=== PATIENT | male | born 1980 | race Caucasian/White ===

== ENCOUNTER 2025-10-26 12:35 | Inpatient (IN) ==
--- NOTE | 2025-10-26 13:28 | Emergency Department Note ---
Impression & Plan At risk for alcohol withdrawal, Transaminitis, Alcohol abuse, Alcoholic intoxication ED Provider Note NAME: LANEY GRACIA AGE: 45 SEX: M : 1980 ARRIVES VIA: Walk-In INFORMANT: Patient, ED PROVIDER(S): Sterling Rodrigues MD CHIEF COMPLAINT: Requesting alcohol withdrawal treatment MEDICAL DECISION MAKING: Patient presents with the above heavy drinker drinking 10-15 light beers daily. KERRY S protocol initiated but does not require acute treatment given that he finished his last drink about 20 minutes prior to arrival. IV was established and blood work was obtained. Patient's blood work shows a leukopenia likely consistent with chronic alcohol use. Patient with a normal hemoglobin and platelet count kidney function unremarkable. AST and ALT elevated. Alcohol of 225. KERRY S protocols were ordered with Valium as needed for KERRY S greater than 5. Patient currently without acute withdrawal related symptoms. The patient did receive thiamine folic acid and fluids. I did speak the on-call hospitalist service LEO Deleon with Dr. Zacarias. Discussion w/ other healthcare providers: None Prior /Outside records reviewed: None Differential diagnosis: Alcohol intoxication, toxicologic, infection, hypoglycemia, electrolyte abnormalities, cardiac sources, intracerebral event, neurologic, trauma, as well as other pathologies. Diagnostics, as interpreted by me: ECG: None Cardiac monitoring: An order was placed for continuous cardiac monitoring. The monitor shows a rate of 85 with sinus rhythm. Patient was placed on pulse oximetry Medical decision rules: None Imaging studies: None HPI: Patient presents requesting alcohol withdrawal related treatment and abstinence. The patient states that he was last sober in August. The patient states that he had an inpatient stay because he had a seizure at work after stopping drinking and likely began drinking about a week after his admission/discharge. Patient states that he is drinking 10-15 beers daily. He does not drink at work. Patient states that he last drank about 20 minutes prior to arrival and had about 4-5 beers prior to arrival. No inciting event or cause other than he states "it was time to stop this." He denies any SI HI or AVH. He states that his sleep is good and appetite has been good. He does work in the [employer] system. He denies abdominal pain or nausea or vomiting. PAST MEDICAL HISTORY: See Below PAST SURGICAL HISTORY: See Below SOCIAL HISTORY: See Below HOME MEDICATIONS: See Below ALLERGIES: See Below VITALS: See Below PHYSICAL EXAMINATION: GENERAL: NAD, non-toxic. EYE EXAM: Normal conjunctiva. PERRL, no anisocoria and EOM's grossly intact w/o pain. OROPHARYNX: Moist mucus membranes, grossly normal dentition. NECK: Trachea midline, no stridor. LUNGS: Clear to auscultation. Normal chest wall mechanics. HEART: NSR, no MRG. ABDOMEN: Abdomen soft, non-tender, no masses, no rebound or guarding. BACK: No CVA TTP. SKIN: No rashes and no bruising. UPPER EXTREMITIES: Upper extremities are grossly normal. LOWER EXTREMITIES: Grossly normal, no edema. NEURO EXAM: Awake and alert, follows commands, no obvious facial asymmetry, normal speech, moves all 4 extremities. 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 Beliefs That Will Affect Care: None Current Living Situation: Spouse and Family Feels Safe at Home: Yes Assistive Devices: None Allergies Allergies Allergy/AdvReac Type Severity Reaction Status Date / Time acetaminophen AdvReac Mild 0 Verified 11/15/14 03:48 hydrocodone AdvReac Mild 0 Verified 11/15/14 03:48 Home Meds Home Medications Medication Instructions Recorded Confirmed omeprazole 20 mg capsule,delayed 20 mg PO QAM 09/03/25 10/26/25 release buspirone 10 mg tablet 10 mg PO .DAILY IN AFTERNOON PRN 10/26/25 10/26/25 as directed buspirone 10 mg tablet 10 mg PO QAM 10/26/25 10/26/25 levetiracetam 500 mg tablet 500 mg PO QPM 10/26/25 10/26/25 sertraline 50 mg tablet 50 mg PO QAM 10/26/25 10/26/25 Results & Data (ED) Vital Signs Vital Signs - 24 hr 10/26/25 12:35 10/26/25 14:20 10/26/25 15:09 Temperature 36.6 C Temperature Source Temporal Artery Scan Pulse Rate 97 H 91 H 93 H Pulse Rate [Apical] Respiratory Rate 16 18 Respiratory Effort / Characteristics Respiratory Depth Respiratory Pattern Blood Pressure 140/97 Blood Pressure [Right Arm] Blood Pressure Mean 111 Blood Pressure Mean [Right Arm] Blood Pressure Position [Right Arm] Pulse Oximetry 95 95 Oxygen Delivery Method Room Air Sepsis Recent Fever Within 48 Hours No Sepsis New/Unexplained Change in Mental Status N/A Sepsis Action Taken by Nursing No Action Required 10/26/25 15:09 Temperature 36.8 C Temperature Source Oral Pulse Rate Pulse Rate [Apical] 84 Respiratory Rate 18 Respiratory Effort / Characteristics Non-Labored Spontaneous Respiratory Depth Normal Respiratory Pattern Regular Blood Pressure Blood Pressure [Right Arm] 136/103 H Blood Pressure Mean Blood Pressure Mean [Right Arm] 114 Blood Pressure Position [Right Arm] Sitting Pulse Oximetry 94 Oxygen Delivery Method Room Air Sepsis Recent Fever Within 48 Hours Sepsis New/Unexplained Change in Mental Status Sepsis Action Taken by Usp Medications Current Medication List: was personally reviewed by me Laboratory Data Attestation: I reviewed the patient's lab results. 10/26/25 13:26 10/26/25 13:26 Lab Results 10/26/25 10/26/25 Range/Units 13:26 14:11 WBC 3.41 L (4.8-10.8) K/ul RBC 5.29 (4.70-6.10) M/uL Hgb 14.3 (14.0-18.0) g/dL Hct 42.4 (42.0-52.0) % MCV 80.2 (80.0-100.0) fL MCH 27.0 (25.0-34.0) pg MCHC 33.7 (32.0-36.0) g/dL RDW Std Deviation 39.6 (36.4-46.3) fL RDW Coeff of Royer 13.7 (11.5-14.5) % Plt Count 165 (130-400) K/uL MPV 9.1 L (9.4-12.4) fL Immature Gran % (Auto) 0.0 % Neut % (Auto) 46.3 % Lymph % (Auto) 47.2 % [place] % (Auto) 5.9 % Eos % (Auto) 0.3 % Baso % (Auto) 0.3 % Neut # (Auto) 1.58 (1.40-6.50) K/uL Lymph # (Auto) 1.61 (1.20-3.40) K/uL [place] # (Auto) 0.20 (0.11-0.59) K/uL Eos # (Auto) 0.01 (0.00-0.50) K/uL Baso # (Auto) 0.01 (0.00-0.20) K/uL Immature Gran # (Auto) 0.00 L (0.01-0.20) K/uL Sodium 138 (136-145) mmol/L Potassium 4.5 (3.5-5.1) mmol/L Chloride 103 (98-107) mmol/L Carbon Dioxide 27 (21-32) mmol/L Anion Gap 8 (3-11) BUN 8 (6-23) mg/dl Creatinine 0.80 (0.6-1.4) mg/dl Est Cr Clr Drug Dosing 143.1 ml/min eGFR 112.61 BUN/Creatinine Ratio 10.0 (10-20) Glucose 101 H (70-99(Fasting)) mg/dl POC Glucose 100 H (70-99) mg/dl Calcium 9.4 (8.6-10.3) mg/dl Total Bilirubin 0.4 (0.2-1.0) mg/dl AST 87 H (13-39) U/L ALT 97 H (7-52) U/L Alkaline Phosphatase 63 (34-104) U/L Total Protein 8.0 (6.0-8.3) gm/dl Albumin 4.6 (3.4-5.0) gm/dl Globulin 3.4 (2.5-4.0) gm/dl Albumin/Globulin Ratio 1.4 (0.9-2) Ethyl Alcohol mg/dL 225.8 H (<10.0) mg/dl Administered Medications Discontinued Medications Thiamine HCl 500 mg/ Sodium (Chloride) 55 mls @ 210 mls/hr IV NOW ONE Stop: 10/26/25 13:41 Last Infusion: 10/26/25 14:58 Dose: Infused Documented By: Admin: 10/26/25 14:13 Dose: 210 mls/hr Documented By: JULIENNE Folic Acid 1 mg/ Syringe 10 mls @ 5 mls/min IV NOW ONE Stop: 10/26/25 13:27 Last Admin: 10/26/25 14:13 Dose: 5 mls/min Documented By: JULIENNE Sodium Chloride (Nss) 1,000 mls @ 999 mls/hr IV .Q1H1M ONE Stop: 10/26/25 15:06 Last Infusion: 10/26/25 15:51 Dose: Infused Documented By: Admin: 10/26/25 14:19 Dose: 999 mls/hr Documented By: JULIENNE Discharge Plan Visit Data Chief Complaint: Alcohol Withdrawal Stated Complaint: ALCOHOL WITHDRAWAL ED Provider: Sterling Rodrigues Discharge Problem: At risk for alcohol withdrawal, Transaminitis, Alcohol abuse, Alcoholic intoxication Patient Disposition: Admitted As Inpatient Condition: Good Discharge Instructions Interventions: ED Discharge Assessment Last Done: 10/26/25 16:46 Discharge Problem: Alcoholic intoxication Qualifiers: Complication of substance-induced condition: uncomplicated Qualified Code(s): F 10.920 - Alcohol use, unspecified with intoxication, uncomplicated
[2025-10-26] MEDS: THIAMINE HCL 500 MG in SODIUM CHLORIDE 0.9% 50 ML IV ONE (14:13)
[2025-10-26] MEDS: FOLIC ACID 1 MG in SYRINGE 9.8 ML IV ONE (14:13)
[2025-10-26] MEDS: SODIUM CHLORIDE 0.9% 1,000 ML IV ONE (14:19)
[2025-10-26 14:24] LABS: Hematocrit (blood only) 42.4 % (42.0-52.0); Hemoglobin 14.3 g/dL (14.0-18.0); Immature Granulocytes # (auto) 0.00 K/uL (0.01-0.20); Immature Granulocytes % (auto) 0.0 %; Mean Corpuscular Hemoglobin 27.0 pg (25.0-34.0); Mean Corpuscular Volume 80.2 fL (80.0-100.0); Platelet Count 165 K/uL (130-400); RDW Standard Deviation 39.6 fL (36.4-46.3); Red Blood Count 5.29 M/uL (4.70-6.10); White Blood Count 3.41 K/ul (4.8-10.8)
[2025-10-26 14:43] LABS: Alanine Aminotransferase 97.0 U/L (7-52); Albumin Globulin Ratio 1.4 (0.9-2); Albumin Level 4.6 gm/dl (3.4-5.0); Alkaline Phosphatase 63.0 U/L (34-104); Anion Gap 8.0 (3-11); Bilirubin,Total 0.4 mg/dl (0.2-1.0); Blood Urea Nitrogen 8.0 mg/dl (6-23); Calcium 9.4 mg/dl (8.6-10.3); Carbon Dioxide 27.0 mmol/L (21-32); Chloride 103.0 mmol/L (98-107); Creatinine Clr Calc Pharmacy 143.1 ml/min; Globulin 3.4 gm/dl (2.5-4.0); Glucose 101.0 mg/dl (70-99(Fasting)); Potassium 4.5 mmol/L (3.5-5.1); Sodium 138.0 mmol/L (136-145); Total Protein 8.0 gm/dl (6.0-8.3)
--- NOTE | 2025-10-26 15:06 | History & Physical Report ---
Date of Service October 26, 2025 Assessment & Plan (1) Alcohol abuse: (2) Transaminitis: (3) CHRISTEL (generalized anxiety disorder): Plan Patient is a 45 year old M with a past medical history of hypertension, CHRISTEL with hx panic attacks, alcohol abuse with history of seizures presenting with alcohol withdrawal. Last drink today ~ 30 minutes prior to ED visit. Reporting anxious feeling and jittery without a tremor. No headache, chest pain, palpitations, hallucinations, nausea, vomiting, bowel changes. No SI/HI. Typically consumes 15 beers daily x month and a half. Last sober in August 2025 following hospital admission to [facility] for seizure 2/2 ETOH withdrawal. Received full work up including EEG, MRI brain and lab work. Was seen by neurology, started on Keppra. Experienced similar symptoms today as he had when he had a seizure including intense anxiety/panic feeling. Recently started on Buspar and sertraline with only partial response. Works in [employer] at [employer], drinking triggered by work environment and anxiety. 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, hx seizure activity with withdrawal; no SI * CIWA score 4 * NSS 1 L bolus, Diazepam, Folic Acid, Thiamine given in ED * Will start AWSS protocol with phenobarb load + taper; thiamine and folic acid daily * B12 pending * NSS maintenance fluids * Permissive hypertension in the setting of withdrawal-> trend * Discussed Psych consult while inpatient for anxiety management as seems to be the trigger for ETOH abuse; patient denies need at this time with plan to continue OP anxiety mgmt (see below) * Discharge planning: anticipate d/c to home with PCP followup; desires alcohol cessation, will need OP resources #Transaminitis * AST 87, ALT 97 with normal bilirubin and Alk Phos-> improved from lab workup outpatient in 08/2024 * Trend #CHRISTEL * Anxiety trigger fo alcohol abuse * On sertraline and buspar daily-> continue home routine DVT Ppx: None Code status: Full PCP: Dr. Miguelito Forbes Dispo: Admit Patient seen in collaboration with Dr. Zacarias. Please see addendum.I spent a total of 60 minutes coordinating, documenting and providing care for this patient excluding time spent in the performance of separately billed services or time spent by another provider/QHP. History of Present Illness Primary Care Provider: Miguelito March Andrei Patient is a 45 year old M with a past medical history of hypertension, CHRISTEL with hx panic attacks, alcohol abuse with history of seizures presenting with alcohol withdrawal. Last drink today ~ 30 minutes prior to ED visit. Reporting anxious feeling and jittery without a tremor. No headache, chest pain, palpitations, hallucinations, nausea, vomiting, bowel changes. No SI/HI. Typically consumes 15 beers daily x month and a half. Last sober in August 2025 following hospital admission to [facility] for seizure 2/2 ETOH withdrawal. Received full work up including EEG, MRI brain and lab work. Was seen by neurology, started on Keppra. Experienced similar symptoms today as he had when he had a seizure including intense anxiety/panic feeling. Recently started on Buspar and sertraline with only partial response. Works in [employer] at [employer], drinking triggered by work environment and anxiety. Denies fever, chills, weight loss, weakness, headache, cognitive changes, vision/hearing changes, chest pain, SOB, swelling, difficulty breathing, urinary concerns, N/V/D, joint swelling/pain, ambulation difficulty, skin rashes, lesions, bleeding, bruising. Discussed with ED provider labs, ETOH withdrawal management. In the emergency department, patient was hemodynamically stable, then hypertensive to 136/103 without headache or vision changes. CIWA score 4. ETOH level 225. Given Diazepam, Folic acid, thiamine in ED. Lab workup showing leukopenia most likely in the setting alcohol withdrawal. AST 87, ALT 97 elevated, chronic elevation noted in outpatient record. History obtained primarily from the patient and via hospitalization record. No family at bedside. External chart review obtained from [employer]. Allergies Allergy/AdvReac Type Severity Reaction Status Date / Time acetaminophen AdvReac Mild 0 Verified 11/15/14 03:48 hydrocodone AdvReac Mild 0 Verified 11/15/14 03:48 Home Medications Medication Instructions Recorded Confirmed Type omeprazole 20 mg capsule,delayed 20 mg PO QAM 09/03/25 10/26/25 History release buspirone 10 mg tablet 10 mg PO .DAILY IN AFTERNOON PRN 10/26/25 10/26/25 History as directed buspirone 10 mg tablet 10 mg PO QAM 10/26/25 10/26/25 History levetiracetam 500 mg tablet 500 mg PO QPM 10/26/25 10/26/25 History sertraline 50 mg tablet 50 mg PO QAM 10/26/25 10/26/25 History Past Med/Surg History Problem List (Updated 10/26/25 @ 17:08 by Sterling Rodrigues MD) Alcoholic intoxication (Acute) At risk for alcohol withdrawal (Acute) CHRISTEL (generalized anxiety disorder) Alcohol abuse (Acute) Transaminitis (Acute) Seizure-like activity (Acute) ARF (acute renal failure) (Acute 11/15/14) Acute renal failure (Acute) Vomiting (Acute) Social History Smoking Status: Never smoker Hx Alcohol Use: Yes Alcohol type: beer Hx Substance Use: No Preferred Language: Azeri Communication Ability: Effective Dental Resident Required: No Beliefs That Will Affect Care: None Current Living Situation: Spouse and Family Feels Safe at Home: Yes Assistive Devices: None Review of Systems Review of Systems: All systems reviewed & are unremarkable except as noted in HPI & below Physical Exam Physical Exam: VITALS: Reviewed. WEIGHT/BMI reviewed. GEN: Healthy appearing, well-developed, NAD. PSYCH: Good Judgment. AOx3. Normal memory, mood, and affect. HEENT -Head: NC/AT; -Eyes: PERRL, EOMI. No discharge or redn ess; -Ears: External ears are normal. -Nose: Normal nares. -Mouth and throat: MMM. Normal gums, muc mitzi, palate,. Good dentition. NECK: Supple, with no masses. CV: S1, S2 without murmur or extra beats, no swelling, perfuses well LUNGS: CTAB, no w/r/c. ABD: Soft, NT/ND, NBS, no masses or organomegaly. : N/A SKIN: Warm, well perfused. No skin rashes or abnormal lesions. MSK: No deformities, Normal gait. EXT: No clubbing, cyanosis, or edema. NEURO: CN II-XII grossly intact. Speech clear. No focal deficits. Results & Data Results & Data Vital Signs (Past 12 Hours) Vital Signs Temp Pulse Resp BP Pulse Ox 10/26/25 14:20 91 H 10/26/25 12:35 36.6 C 97 H 16 140/97 95 Laboratory Results Short CBC 10/26/25 Range/Units 13:26 WBC 3.41 L (4.8-10.8) K/ul Hgb 14.3 (14.0-18.0) g/dL Hct 42.4 (42.0-52.0) % Plt Count 165 (130-400) K/uL BMP 10/26/25 13:26 Sodium 138 Potassium 4.5 Chloride 103 Carbon Dioxide 27 BUN 8 Creatinine 0.80 Glucose 101 H Calcium 9.4 Liver Function 10/26/25 Range/Units 13:26 Total Bilirubin 0.4 (0.2-1.0) mg/dl AST 87 H (13-39) U/L ALT 97 H (7-52) U/L Alkaline Phosphatase 63 (34-104) U/L Albumin 4.6 (3.4-5.0) gm/dl Supervising Physician Co-Signing Physician Notes Patient seen and examined at bedside. Last drink slightly before coming to ED. Has had withdrawal seizure before. On exam, mild tremors noted in hands bilaterally, otherwise well appearing. Creatinine at baseline, mildly elevated LFTs improved from prior, patient still actively intoxicated. Presentation consistent with active alcohol intoxication that is high risk for delirium tremens given prior event. Admit to PCU, start phenobarbital load and taper. AWSS score tracking. Start thiamine and folic acid, check B12. Trigger for alcohol use is likely anxiety drive, patient declining evaluation by psychiatry inpatient at this time. Patient open to discussing rehab options with case management. I have seen and discussed the case with the collaborating advanced practitioner. I agree with the above H&P. I have reviewed and confirmed the patients medical history, the findings on physical examination, and the patients diagnosis and treatment plan with Sheri BAILEY and agree with the information documented I spent a total of 20 minutes coordinating, documenting, and providing care for this patient excluding time spent in the performance of separately billed services. All of the aforementioned completed outside of collaborating with the assigned advanced practitioner for a full treatment plan. I have reviewed the advanced practitioner's documentation, and I agree with, and take responsibility for the plan of care
[2025-10-26] MEDS ORDERED: ONDANSETRON INJ 2 MG/ML 2 ML VIAL IV PRN (16:59)
[2025-10-26] MEDS ORDERED: ALUMINUM/MAGNESIUM SUSP 30 ML UDC PO PRN (16:59)
[2025-10-26] MEDS ORDERED: MAGNESIUM HYDROXIDE SUSP 30 ML UDC PO PRN (16:59)
[2025-10-26] MEDS ORDERED: SENNA 8.6 MG TAB PO PRN (17:18)
[2025-10-26] MEDS: SODIUM CHLORIDE 0.9% 1,000 ML IV SCH (17:35)
[2025-10-26] MEDS: MELATONIN 3 MG TAB PO PRN (20:11)
[2025-10-26] MEDS: ACETAMINOPHEN 325 MG TAB PO PRN (20:11)
[2025-10-27 06:12] LABS: Hematocrit (blood only) 38.4 % (42.0-52.0); Hemoglobin 13.2 g/dL (14.0-18.0); Immature Granulocytes # (auto) 0.01 K/uL (0.01-0.20); Immature Granulocytes % (auto) 0.3 %; Mean Corpuscular Hemoglobin 27.3 pg (25.0-34.0); Mean Corpuscular Volume 79.5 fL (80.0-100.0); Platelet Count 135 K/uL (130-400); RDW Standard Deviation 38.5 fL (36.4-46.3); Red Blood Count 4.83 M/uL (4.70-6.10); White Blood Count 3.10 K/ul (4.8-10.8)
[2025-10-27 06:31] LABS: Albumin Level 4.2 gm/dl (3.4-5.0); Anion Gap 9.0 (3-11); Blood Urea Nitrogen 11.0 mg/dl (6-23); Calcium 8.9 mg/dl (8.6-10.3); Carbon Dioxide 26.0 mmol/L (21-32); Chloride 101.0 mmol/L (98-107); Creatinine Clr Calc Pharmacy 142.8 ml/min; Glucose 91.0 mg/dl (70-99(Fasting)); Potassium 4.1 mmol/L (3.5-5.1); Sodium 136.0 mmol/L (136-145)
[2025-10-27] MEDS: THIAMINE HCL 100 MG TAB PO SCH (08:37)
[2025-10-27] MEDS: FOLIC ACID 400 MCG TAB PO SCH (08:38)
--- NOTE | 2025-10-27 13:49 | Hospitalist Progress Note ---
Date of Service October 27, 2025 Assessment & Plan (1) Alcohol abuse: (2) Transaminitis: (3) CHRISTEL (generalized anxiety disorder): Plan Patient is a 45 year old M with a past medical history of hypertension, CHRISTEL with hx panic attacks, alcohol abuse with history of seizures presenting with alcohol withdrawal. Last drink today ~ 30 minutes prior to ED visit. Reporting anxious feeling and jittery without a tremor. No headache, chest pain, palpitations, hallucinations, nausea, vomiting, bowel changes. No SI/HI. Typically consumes 15 beers daily x month and a half. Last sober in August 2025 following hospital admission to [facility] for seizure 2/2 ETOH withdrawal. Received full work up including EEG, MRI brain and lab work. Was seen by neurology, started on Keppra. Experienced similar symptoms today as he had when he had a seizure including intense anxiety/panic feeling. Recently started on Buspar and sertraline with only partial response. Works in [employer] at [employer], drinking triggered by work environment and anxiety. 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, hx seizure activity with withdrawal; no SI * CIWA score 4 * NSS 1 L bolus, Diazepam, Folic Acid, Thiamine given in ED * Will start AWSS protocol with phenobarb load + taper; thiamine and folic acid daily Remains stable without any significant withdrawal symptoms Minimal tremors with outstretched hands Has been eating and drinking reasonably and will DC intravenous fluid Blood pressure remains on the upper side at 154/101 and will observe The patient refused to go to inpatient rehab Likely discharge tomorrow cellulitis #Transaminitis * AST 87, ALT 97 with normal bilirubin and Alk Phos-> improved from lab workup outpatient in 08/2024 LFTs are improving Strongly advised to quit drinking #CHRISTEL * Anxiety trigger fo alcohol abuse * On sertraline and buspar daily-> continue home routine DVT Ppx: None Code status: Full PCP: Dr. Miguelito Forbes Dispo: Admit I spent a total of 53 minutes seeing the patient, examining him, reviewing the chart and going through the investigations, going through medication and planning of care Admission and Anticipated Discharge Date Admission Date: October 26, 2025 Subjective 10/27/2025 The patient was seen and examined in telemetry unit He was admitted with alcohol withdrawal syndrome Last drink was about 24 hours ago Still has minimal tremor but does not have any confusion and/or palpitation, no nausea or vomiting, Review of Systems Review of Systems: All systems reviewed and are unremarkable except as noted below Physical Exam Physical Exam: Lying in bed without any acute distress Constitutional: well developed, well nourished and + obese; not ill appearing Eyes: PERRL, conjunctivae normal, anicteric sclerae ENMT: external ear and nose normal, oropharynx normal Neck: trachea midline, no thyromegaly Respiratory: no respiratory distress Auscultation: lungs clear to auscultation bilaterally Cardiovascular: Rate/Rhythm: regular rate and regular rhythm; not tachycardic Heart Sounds: normal S1 and normal S2; no murmur Extremities: normal capillary refill; no edema Gastrointestinal (Abdomen): Inspection/Auscultation: normal bowel sounds; abdomen not distended Percussion/Palpation: abdomen soft; abdomen nontender Musculoskeletal: No acute arthritis involving any of the joint Neurologic: normal touch/pain/proprioception and moves all extremities; no focal motor deficits Psychiatric: A+Ox3, euthymic affect Lymphatic: no cervical or axillary lymphadenopathy Results & Data Results & Data Vital Signs (Past 12 Hours) Vital Signs Temp Pulse Resp BP Pulse Ox O2 Del Method 10/27/25 11:18 37.0 C 71 18 154/101 H 96 Room Air 10/27/25 07:57 36.8 C 76 20 158/99 H 96 Room Air Laboratory Results Short CBC 10/26/25 10/27/25 Range/Units 13:26 05:36 WBC 3.41 L 3.10 L (4.8-10.8) K/ul Hgb 14.3 13.2 L (14.0-18.0) g/dL Hct 42.4 38.4 L (42.0-52.0) % Plt Count 165 135 (130-400) K/uL BMP 10/26/25 10/27/25 13:26 05:36 Sodium 138 136 Potassium 4.5 4.1 Chloride 103 101 Carbon Dioxide 27 26 BUN 8 11 Creatinine 0.80 0.80 Glucose 101 H 91 Calcium 9.4 8.9 Liver Function 10/26/25 10/27/25 Range/Units 13:26 05:36 Total Bilirubin 0.4 (0.2-1.0) mg/dl AST 87 H (13-39) U/L ALT 97 H (7-52) U/L Alkaline Phosphatase 63 (34-104) U/L Albumin 4.6 4.2 (3.4-5.0) gm/dl Medications Administered Current Inpatient Medications Acetaminophen (Acetaminophen 325 Mg Tab) 650 mg PO Q4H PRN PRN Reason: Pain or Fever Stop: 11/25/25 16:58 Last Admin: 10/26/25 20:11 Dose: 650 mg Folic Acid (Folic Acid 400 Mcg Tab) 400 mcg PO QAM [facility] Stop: 11/26/25 08:59 Last Admin: 10/27/25 08:38 Dose: 400 mcg Sodium Chloride (Nss) 1,000 mls @ 100 mls/hr IV .Q10H [facility] Stop: 10/29/25 16:14 Last Admin: 10/27/25 12:56 Dose: 100 mls/hr Melatonin (Melatonin 3 Mg Tab) 3 mg PO HS PRN PRN Reason: Sleep Stop: 11/25/25 16:58 Last Admin: 10/26/25 20:11 Dose: 3 mg Ondansetron HCl (Ondansetron Inj 2 Mg/Ml 2 Ml Vial) 4 mg IV Q6H PRN PRN Reason: Nausea Stop: 11/25/25 16:58 Phenobarbital (Phenobarbital 30 Mg Tab) 60 mg PO Q12H [facility] Stop: 10/28/25 21:31 Last Admin: 10/27/25 08:38 Dose: 60 mg Phenobarbital (Phenobarbital 30 Mg Tab) 30 mg PO Q12H [facility] Stop: 10/30/25 21:31 Phenobarbital (Phenobarbital 15 Mg Tab) 15 mg PO Q12H [facility] Stop: 11/01/25 21:31 Sennosides (Senna 8.6 Mg Tab) 8.6 mg PO DAILY PRN PRN Reason: Constipation Stop: 11/25/25 17:17 Thiamine HCl (Thiamine Hcl 100 Mg Tab) [facility] Stop: 11/26/25 08:59 Last Admin: 10/27/25 08:37 Dose: 100 mg Current Inpatient Medications Acetaminophen (Acetaminophen 325 Mg Tab) 650 mg PO Q4H PRN PRN Reason: Pain or Fever Stop: 11/25/25 16:58 Last Admin: 10/26/25 20:11 Dose: 650 mg Folic Acid (Folic Acid 400 Mcg Tab) 400 mcg PO QAM [facility] Stop: 11/26/25 08:59 Last Admin: 10/27/25 08:38 Dose: 400 mcg Sodium Chloride (Nss) 1,000 mls @ 100 mls/hr IV .Q10H [facility] Stop: 10/29/25 16:14 Last Admin: 10/27/25 12:56 Dose: 100 mls/hr Melatonin (Melatonin 3 Mg Tab) 3 mg PO HS PRN PRN Reason: Sleep Stop: 11/25/25 16:58 Last Admin: 10/26/25 20:11 Dose: 3 mg Ondansetron HCl (Ondansetron Inj 2 Mg/Ml 2 Ml Vial) 4 mg IV Q6H PRN PRN Reason: Nausea Stop: 11/25/25 16:58 Phenobarbital (Phenobarbital 30 Mg Tab) 60 mg PO Q12H [facility] Stop: 10/28/25 21:31 Last Admin: 10/27/25 08:38 Dose: 60 mg Phenobarbital (Phenobarbital 30 Mg Tab) 30 mg PO Q12H [facility] Stop: 10/30/25 21:31 Phenobarbital (Phenobarbital 15 Mg Tab) 15 mg PO Q12H [facility] Stop: 11/01/25 21:31 Sennosides (Senna 8.6 Mg Tab) 8.6 mg PO DAILY PRN PRN Reason: Constipation Stop: 11/25/25 17:17 Thiamine HCl (Thiamine Hcl 100 Mg Tab) [facility] Stop: 11/26/25 08:59 Last Admin: 10/27/25 08:37 Dose: 100 mg
[2025-10-27] MEDS: CYANOCOBALAMIN 1000 MCG/ML VIAL IM SCH (15:47)
[2025-10-28 04:59] LABS: Hematocrit (blood only) 38.8 % (42.0-52.0); Hemoglobin 13.7 g/dL (14.0-18.0); Immature Granulocytes # (auto) 0.01 K/uL (0.01-0.20); Immature Granulocytes % (auto) 0.3 %; Mean Corpuscular Hemoglobin 28.0 pg (25.0-34.0); Mean Corpuscular Volume 79.2 fL (80.0-100.0); Platelet Count 119 K/uL (130-400); RDW Standard Deviation 37.9 fL (36.4-46.3); Red Blood Count 4.90 M/uL (4.70-6.10); White Blood Count 3.19 K/ul (4.8-10.8)
[2025-10-28 05:14] LABS: Alanine Aminotransferase 82.0 U/L (7-52); Albumin Globulin Ratio 1.4 (0.9-2); Albumin Level 4.2 gm/dl (3.4-5.0); Alkaline Phosphatase 56.0 U/L (34-104); Anion Gap 7.0 (3-11); Bilirubin,Total 0.7 mg/dl (0.2-1.0); Blood Urea Nitrogen 11.0 mg/dl (6-23); Calcium 9.4 mg/dl (8.6-10.3); Carbon Dioxide 26.0 mmol/L (21-32); Chloride 102.0 mmol/L (98-107); Creatinine Clr Calc Pharmacy 136.0 ml/min; Globulin 3.1 gm/dl (2.5-4.0); Glucose 104.0 mg/dl (70-99(Fasting)); Magnesium 2.1 mg/dl (1.7-2.4); Potassium 3.9 mmol/L (3.5-5.1); Sodium 135.0 mmol/L (136-145); Total Protein 7.3 gm/dl (6.0-8.3)
[2025-10-28 10:40] VITALS: BP 132/103; PULSE 79; RESP 20; TEMP 98.2; O2SAT 95
--- NOTE | 2025-10-28 12:14 | Hospitalist Progress Note ---
Date of Service October 28, 2025 Assessment & Plan (1) Alcohol abuse: (2) Transaminitis: (3) CHRISTEL (generalized anxiety disorder): Plan Patient is a 45 year old M with a past medical history of hypertension, CHRISTEL with hx panic attacks, alcohol abuse with history of seizures presenting with alcohol withdrawal. Last drink today ~ 30 minutes prior to ED visit. Reporting anxious feeling and jittery without a tremor. No headache, chest pain, palpitations, hallucinations, nausea, vomiting, bowel changes. No SI/HI. Typically consumes 15 beers daily x month and a half. Last sober in August 2025 following hospital admission to [facility] for seizure 2/2 ETOH withdrawal. Received full work up including EEG, MRI brain and lab work. Was seen by neurology, started on Keppra. Experienced similar symptoms today as he had when he had a seizure including intense anxiety/panic feeling. Recently started on Buspar and sertraline with only partial response. Works in [employer] at [employer], drinking triggered by work environment and anxiety. 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, hx seizure activity with withdrawal; no SI * CIWA score 4 * NSS 1 L bolus, Diazepam, Folic Acid, Thiamine given in ED * Will start AWSS protocol with phenobarb load + taper; thiamine and folic acid daily Remains stable without any significant withdrawal symptoms Minimal tremors with outstretched hands Has been eating and drinking reasonably and will DC intravenous fluid Blood pressure remains on the upper side at 154/101 and will observe The patient refused to go to inpatient rehab Likely discharge tomorrow (Cellulitis was mistakenly inserted) He has been feeling much better without any tremors or unsteady gait No palpitation and the heart rate remains controlled He will be followed up with outpatient alcohol Anonymous group and will be discharged home this afternoon #Transaminitis * AST 87, ALT 97 with normal bilirubin and Alk Phos-> improved from lab workup outpatient in 08/2024 LFTs are improving Strongly advised to quit drinking LFTs are improving and will get better if he quits drinking #CHRISTEL * Anxiety trigger fo alcohol abuse * On sertraline and buspar daily-> continue home routine DVT Ppx: None Code status: Full PCP: Dr. Miguelito Forbes Dispo: Admit I spent a total of 35 minutes seeing the patient, examining him, reviewing the chart and going through the investigations, going through medication and plan [facility] Admission and Anticipated Discharge Date Admission Date: October 26, 2025 Subjective 10/27/2025 The patient was seen and examined in telemetry unit He was admitted with alcohol withdrawal syndrome Last drink was about 24 hours ago Still has minimal tremor but does not have any confusion and/or palpitation, no nausea or vomiting, 10/28/2025 Patient was seen and examined in telemetry unit He has been feeling much better denies any palpitation, any tremors, any nausea or vomiting He has been tolerating regular diet and has been ambulating without any difficulties To be discharged home this afternoon Review of Systems Review of Systems: All systems reviewed and are unremarkable except as noted below Physical Exam Physical Exam: Lying in bed without any acute distress Constitutional: well developed, well nourished and + obese; not ill appearing Eyes: PERRL, conjunctivae normal, anicteric sclerae ENMT: external ear and nose normal, oropharynx normal Neck: trachea midline, no thyromegaly Respiratory: no respiratory distress Auscultation: lungs clear to auscultat ion bilaterally Cardiovascular: Rate/Rhythm: regular rate and regular rhythm; not tachycardic Heart Sounds: normal S1 and normal S2; no murmur Extremities: normal capillary refill; no edema Gastrointestinal (Abdomen): Inspection/Auscultation: normal bowel sounds; abdomen not distended Percussion/Palpation: abdomen soft; abdomen nontender Neurologic: normal touch/pain/proprioception and moves all extremities; no focal motor deficits No tremors involving the outstretched hand Psychiatric: A+Ox3, euthymic affect Lymphatic: no cervical or axillary lymphadenopathy Results & Data Results & Data Vital Signs (Past 12 Hours) Vital Signs Temp Pulse Resp BP Pulse Ox O2 Del Method 10/28/25 10:38 36.8 C 79 20 132/103 H 95 Room Air 10/28/25 07:10 36.9 C 74 17 137/101 H 97 Room Air 10/28/25 02:33 36.3 C L 70 12 141/99 H 99 Room Air Laboratory Results Short CBC 10/28/25 Range/Units 04:38 WBC 3.19 L (4.8-10.8) K/ul Hgb 13.7 L (14.0-18.0) g/dL Hct 38.8 L (42.0-52.0) % Plt Count 119 L (130-400) K/uL BMP 10/28/25 04:38 Sodium 135 L Potassium 3.9 Chloride 102 Carbon Dioxide 26 BUN 11 Creatinine 0.84 Glucose 104 H Calcium 9.4 Liver Function 10/28/25 Range/Units 04:38 Total Bilirubin 0.7 (0.2-1.0) mg/dl AST 84 H (13-39) U/L ALT 82 H (7-52) U/L Alkaline Phosphatase 56 (34-104) U/L Albumin 4.2 (3.4-5.0) gm/dl Medications Administered Current Inpatient Medications Acetaminophen (Acetaminophen 325 Mg Tab) 650 mg PO Q4H PRN PRN Reason: Pain or Fever Stop: 11/25/25 16:58 Last Admin: 10/26/25 20:11 Dose: 650 mg Cyanocobalamin (Cyanocobalamin 1000 Mcg/Ml Vial) 1,[facility] Stop: 11/26/25 14:14 Last Admin: 10/28/25 08:15 Dose: Not Given Folic Acid (Folic Acid 400 Mcg Tab) 400 mcg PO QAM [facility] Stop: 11/26/25 08:59 Last Admin: 10/28/25 08:14 Dose: 400 mcg Melatonin (Melatonin 3 Mg Tab) 3 mg PO HS PRN PRN Reason: Sleep Stop: 11/25/25 16:58 Last Admin: 10/27/25 19:54 Dose: 3 mg Ondansetron HCl (Ondansetron Inj 2 Mg/Ml 2 Ml Vial) 4 mg IV Q6H PRN PRN Reason: Nausea Stop: 11/25/25 16:58 Phenobarbital (Phenobarbital 30 Mg Tab) 60 mg PO Q12H [facility] Stop: 10/28/25 21:31 Last Admin: 10/28/25 08:14 Dose: 60 mg Phenobarbital (Phenobarbital 30 Mg Tab) 30 mg PO Q12H [facility] Stop: 10/30/25 21:31 Phenobarbital (Phenobarbital 15 Mg Tab) 15 mg PO Q12H [facility] Stop: 11/01/25 21:31 Sennosides (Senna 8.6 Mg Tab) 8.6 mg PO DAILY PRN PRN Reason: Constipation Stop: 11/25/25 17:17 Thiamine HCl (Thiamine Hcl 100 Mg Tab) 100 mg PO EUFEMIAM [facility] Stop: 11/26/25 08:59 Last Admin: 10/28/25 08:14 Dose: 100 mg
--- NOTE | 2025-10-29 07:53 | Discharge Summary ---
Date of Service October 29, 2025 Admission HPI Per Admitting Provider Patient is a 45 year old M with a past medical history of hypertension, CHRISTEL with hx panic attacks, alcohol abuse with history of seizures presenting with alcohol withdrawal. Last drink today ~ 30 minutes prior to ED visit. Reporting anxious feeling and jittery without a tremor. No headache, chest pain, palpitations, hallucinations, nausea, vomiting, bowel changes. No SI/HI. Typically consumes 15 beers daily x month and a half. Last sober in August 2025 following hospital admission to [facility] for seizure 2/2 ETOH withdrawal. Received full work up including EEG, MRI brain and lab work. Was seen by neurology, started on Keppra. Experienced similar symptoms today as he had when he had a seizure including intense anxiety/panic feeling. Recently started on Buspar and sertraline with only partial response. Works in [employer] at [employer], drinking triggered by work environment and anxiety. Denies fever, chills, weight loss, weakness, headache, cognitive changes, vision/hearing changes, chest pain, SOB, swelling, difficulty breathing, urinary concerns, N/V/D, joint swelling/pain, ambulation difficulty, skin rashes, lesions, bleeding, bruising. Discussed with ED provider labs, ETOH withdrawal management. In the emergency department, patient was hemodynamically stable, then hypertensive to 136/103 without headache or vision changes. CIWA score 4. ETOH level 225. Given Diazepam, Folic acid, thiamine in ED. Lab workup showing leukopenia most likely in the setting alcohol withdrawal. AST 87, ALT 97 elevated, chronic elevation noted in outpatient record. History obtained primarily from the patient and via hospitalization record. No family at bedside. External chart review obtained from [facility]. Admission Exam Per Admitting Provider Physical Exam: VITALS: Reviewed. WEIGHT/BMI reviewed. GEN: Healthy appearing, well-developed, NAD. PSYCH: Good Judgment. AOx3. Normal memory, mood, and affect. HEENT -Head: NC/AT; -Eyes: PERRL, EOMI. No discharge or redn ess; -Ears: External ears are normal. -Nose: Normal nares. -Mouth and throat: MMM. Normal gums, muc mitzi, palate,. Good dentition. NECK: Supple, with no masses. CV: S1, S2 without murmur or extra beats, no swelling, perfuses well LUNGS: CTAB, no w/r/c. ABD: Soft, NT/ND, NBS, no masses or organomegaly. : N/A SKIN: Warm, well perfused. No skin rashes or abnormal lesions. MSK: No deformities, Normal gait. EXT: No clubbing, cyanosis, or edema. NEURO: CN II-XII grossly intact. Speech clear. No focal deficits. Principal Diagnosis Alcohol abuse with withdrawal symptoms, Transaminitis secondary to use of alcohol Discharge Exam Lying in bed without any acute distress Constitutional well developed, well nourished and + obese; not ill appearing Eyes PERRL, conjunctivae normal, anicteric sclerae ENMT external ear and nose normal, oropharynx normal Neck trachea midline, no thyromegaly Respiratory no respiratory distress Auscultation: lungs clear to auscultation bilaterally Cardiovascular Rate/Rhythm: regular rate and regular rhythm; not tachycardic Heart Sounds: normal S1 and normal S2; no murmur Extremities: normal capillary refill; no edema Gastrointestinal (Abdomen) Inspection/Auscultation: normal bowel sounds; abdomen not distended Percussion/Palpation: abdomen soft; abdomen nontender Neurologic normal touch/pain/proprioception and moves all extremities; no focal motor deficits Psychiatric A+Ox3, euthymic affect Lymphatic no cervical or axillary lymphadenopathy Discharge Data Allergies Allergy/AdvReac Type Severity Reaction Status Date / Time acetaminophen AdvReac Mild 0 Verified 11/15/14 03:48 hydrocodone AdvReac Mild 0 Verified 11/15/14 03:48 Consultations 10/26/25 14:48 ED Decision to Admit Stat Hospital Course (1) Alcohol abuse: (2) Transaminitis: (3) CHRISTEL (generalized anxiety disorder): Plan Patient is a 45 year old M with a past medical history of hypertension, CHRISTEL with hx panic attacks, alcohol abuse with history of seizures presenting with alcohol withdrawal. Last drink today ~ 30 minutes prior to ED visit. Reporting anxious feeling and jittery without a tremor. No headache, chest pain, palpitations, hallucinations, nausea, vomiting, bowel changes. No SI/HI. Typically consumes 15 beers daily x month and a half. Last sober in August 2025 following hospital admission to [facility] for seizure 2/2 ETOH withdrawal. Received full work up including EEG, MRI brain and lab work. Was seen by neurology, started on Keppra. Experienced similar symptoms today as he had when he had a seizure including intense anxiety/panic feeling. Recently started on Buspar and sertraline with only partial response. Works in [employer] at [employer], drinking triggered by work environment and anxiety. 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, hx seizure activity with withdrawal; no SI * CIWA score 4 * NSS 1 L bolus, Diazepam, Folic Acid, Thiamine given in ED * Will start AWSS protocol with phenobarb load + taper; thiamine and folic acid daily Remains stable without any significant withdrawal symptoms Minimal tremors with outstretched hands Has been eating and drinking reasonably and will DC intravenous fluid Blood pressure remains on the upper side at 154/101 and will observe The patient refused to go to inpatient rehab Likely discharge tomorrow (Cellulitis was mistakenly inserted) He has been feeling much better without any tremors or unsteady gait No palpitation and the heart rate remains controlled He will be followed up with outpatient alcohol Anonymous group and will be discharged home this afternoon #Transaminitis * AST 87, ALT 97 with normal bilirubin and Alk Phos-> improved from lab workup outpatient in 08/2024 LFTs are improving Strongly advised to quit drinking LFTs are improving and will get better if he quits drinking #CHRISTEL * Anxiety trigger fo alcohol abuse * On sertraline and buspar daily-> continue home routine DVT Ppx: None Code status: Full PCP: Dr. Miguelito Forbes Dispo: Admit I spent a total of 35 minutes seeing the patient, examining him, reviewing the chart and going through the investigations, going through medication and planning of care Total Time Total Time Spent Total Time Spent (In Minutes): 35 Minutes Discharge Plan Discharge Items Patient Disposition: Home - Self-Care Reason For Visit: ALCOHOL WITHDRAWAL Discharge Diagnosis: Alcohol abuse with withdrawal symptoms, Transaminitis secondary to use of alcohol Condition on Discharge: Good Activity: Resume your previous activity Non-emergency contact: Primary Care Provider Call non-emergency contact if: you have any medication questions and your symptoms worsen Follow-up/Referrals: Miguelito Forbes M.D. [Primary Care Provider] - (Date & Time 11/04/2025 9:40 AM Provider: Miguelito Forbes MD [facility] ) Diet: Regular Addtl Attending Provider Instructions: Please take precautions to avoid falls Keep taking medications as advised Strongly advised to quit drinking of alcohol Strongly advised to have regular follow-up with alcohol Anonymous group Please keep appointment with a healthcare provider Pending Studies at Discharge: No Stand-Alone Forms: [facility], Work/School Release, Smoking Cessation Medications and DC Order Prescriptions: New folic acid 400 mcg Tablet 400 mcg PO QAM Qty: 30 0RF thiamine HCl (vitamin B1) 100 mg Tablet 100 mg PO QAM Qty: 30 0RF phenobarbital 15 mg tablet 15 mg PO UD Qty: 8 0RF Rx Instructions: 2 tabs this evening and twice daily tomorrow and then 1 tab twice daily day after. mecobalamin (vitamin B12) [B12 Active] 1,000 mcg tablet,chewable 1,000 mcg PO DAILY Qty: 30 0RF Continued omeprazole 20 mg capsule,delayed release(DR/EC) 20 mg PO QAM levetiracetam 500 mg tablet 500 mg PO QPM buspirone 10 mg tablet 10 mg PO .DAILY IN AFTERNOON PRN (Reason: as directed) buspirone 10 mg tablet 10 mg PO QAM sertraline 50 mg tablet 50 mg PO QAM Discharge Orders: Discharge Order (Routine); Ordered 10/28/25 Ordered By: [place] Admission Data Admit Date/Time: 10/26/25 15:38 Attending Provider: [place] Admit Provider: Karson Zacarias Primary Care Provider: Miguelito Forbes Other Providers: Karson Zacarias Other Interventions: Discharge Summary Assessment (RN) Last Done: 10/28/25 13:48
== END 2025-10-28 13:50 | disposition home or self-care (01) | DRG 897 ==
LOC: ED 12:35 → 2E 15:38 → SUATTDRO 15:38 → 2E 16:46